=== PATIENT | male | born 1980 | race Caucasian/White ===

== ENCOUNTER 2020-07-03 09:14 | Emergency (ER) | payer OTHER ==
[~2020-07-03] VITALS: Ht 190.5 cm; Wt 127.0 kg
[~2020-07-03 09:14] MED LIST: HYDACE10B PO; IBUP800
[2020-07-03] MEDS ORDERED: Crutch1 EACH XX (12:12)
[2020-07-03] MEDS ORDERED: Percocet 5-3251 EACH PO (12:12)
[2020-07-03] MEDS ORDERED: NAPR500 PO (12:12)
== END 2020-07-03 12:44 | disposition home or self-care (01) ==
LOC: ER 09:14
DX: R22.42 Localized swelling, mass and lump, left lower limb (principal); M25.572 Pain in left ankle and joints of left foot; W01.0XXA Fall on same level from slipping, tripping and stumbling without subsequent striking against object, initial encounter; Z91.81 History of falling
CPT/HCPCS: 73610; 99283-25; A9270-GY

== ENCOUNTER 2020-09-22 06:06 | Day surgery (SDC) | payer OTHER ==
[~2020-09-22] VITALS: Ht 190.5 cm; Wt 134.2 kg
[~2020-09-22 06:06] MED LIST changes: +Crutch1 EACH XX; +NAPR500 PO; +Percocet 5-3251 EACH PO; +TIZA4 PO
[2020-09-22] MEDS ORDERED: METR59TL (06:45)
--- NOTE | 2020-09-22 06:49 | NUR ---
09/22/20 0649 Brittaney Harrington CALL LIGHT WITHIN REACH
--- NOTE | 2020-09-22 09:16 | NUR ---
09/22/20 0916 Desiree Carranza PT DENIES PAIN AND NAUSEA AT THIS TIME. PT INTO RECLINER W/O DIFFICULTY. PT RESTING AT THIS TIME. PT WISHES TO TAKE PO PAIN MED PRIOR TO DC. ICE AND ELEVATION IMPLEMENTED.
== END 2020-09-22 09:42 | disposition home or self-care (01) ==
LOC: ORSCSDS 06:06
PROVIDERS: Podiatrist Foot & Ankle Surgery
PROC: 0LQV0ZZ Repair Right Foot Tendon, Open Approach (ICD-10-PCS; principal; 2020-09-22 07:30)
DX: S86.311A Strain of muscle(s) and tendon(s) of peroneal muscle group at lower leg level, right leg, initial encounter (principal); S93.492D Sprain of other ligament of left ankle, subsequent encounter
CPT/HCPCS: A9270; J0171; J0690; J1100; J1885; J2250; J2405; J2704; J3010; J7120; V2790